=== PATIENT | female | born 1970 | race Caucasian/White ===

== ENCOUNTER → 2019-02-14 | Outpatient (CLI) | payer SELFPAY ==
[2019-02-14 10:27] VITALS: BP 107/73; PULSE 78; RESP 18; TEMP 98.1; BMI 31.8
--- NOTE | 2019-02-14 11:23 | P.HPOB ---
History of Present Illness H&P Date: 02/14/19 Chief Complaint: The patient is here for her routine gynecologic exam. This is a 56-year-old with an LMP of 01/08/2019. She is status post tubal ligation. It has been about 4 years since her last pelvic exam. She believes she is approaching the menopause and her menstrual periods have been about every 2 to 3 months during the past 3 years. Prior to that, her menstrual periods were regular every month. She has some hot flashes and night sweats during the past 3 years. Her LMP was more crampy than usual. She is otherwise without gynecologic complaints. She is currently on amoxicillin for a sinus infection. She was given a prescription for Diflucan since she tends to get yeast infections with antibiotics. She has taken to Diflucan pills over 3 days. She denies any vaginal itching, but has noticed some dryness. Review of Systems The patient's weight has been stable over the last year. She denies respiratory, cardiac, or G.I. problems. 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 She had a cryotherapy of the cervix in 1995 for dysplasia. She had a uterine fibroids measuring 5.5 cm in 2003. History of Any Multi-Drug Resistant Organisms: None Reported Past Surgical History: Breast Surgery, Tubal Ligation Additional Past Surgical History / Comment(s): laparoscopic cystectomy 1985; cryotherapy of the [id number]; Saline breast implants 2000. Past Anesthesia/Blood Transfusion Reactions: No Reported Reaction Past Psychological History: Anxiety, Depression Smoking Status: Current every day smoker Past Alcohol Use History: Rare Past Drug Use History: None Reported Additional History: She is and does have a boyfriend. 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 - Past Family History Mother Family Medical History: Cancer Additional Family Medical History / Comment(s): pacemaker of the heart; Bradycardia; had cervical cancer. Maternal grandfather had in [place]. Father Family Medical History: No Reported History, Unable to Obtain Medications and Allergies Home Medications Medication Instructions Recorded Confirmed Type Amoxicillin 500 mg PO TID 02/14/19 02/14/19 History Cyanocobalamin (Vitamin B-12) 1,000 mcg PO QAM 02/14/19 02/14/19 History [Vitamin B-12] Folic Acid 1 mg PO QAM 02/14/19 02/14/19 History Pyridoxine [Vitamin B-6] 50 mg PO QAM 02/14/19 02/14/19 History Allergies Allergy/AdvReac Type Severity Reaction Status Date / Time doxycycline Allergy Nausea & Unverified 02/14/19 10:14 Vomiting Sulfa (Sulfonamide Allergy Unknown Unverified 02/14/19 10:14 Antibiotics) sulfamethoxazole Allergy Nausea Unverified 02/14/19 10:14 [From Bactrim] trimethoprim [From Bactrim] Allergy Nausea Unverified 02/14/19 10:14 Exam Vital Signs Temp Pulse Resp BP Pulse Ox 02/14/19 10:17 98.1 F 78 18 107/73 99 Intake and Output 02/13/19 02/14/19 02/14/19 22:59 06:59 14:59 Other: Weight 78.925 kg Height 5'2", weight 174 pounds, BMI 31.8. This is a well-developed well-nourished white female who is alert and oriented times 3 in no acute distress. HEENT: Within normal limits. NECK: Supple without mass or thyromegaly. CHEST AND LUNGS: Clear to auscultation. HEART: Regular rate and rhythm. BREASTS: Are without mass or discharge. Consistent with bilateral breast implants. AXILLARY EXAM: Negative for adenopathy. BACK: Negative for CVA tenderness. ABDOMEN: Soft, nontender, without palpable masses. PELVIC EXAM: Normal external genitalia. Cervix and vagina appear normal. There is no unusual discharge. There is no evidence of prolapse. The uterus is midposition, multiparous, nongravid size and nontender. There are no palpable adnexal masses or tenderness. RECTAL EXAM: rectovaginal exam is negative for mass or tenderness and is negative for occult blood. EXTREMITIES: Nontender. IMPRESSION: 1. 48-year-old perimenopausal female with normal gynecologic exam. 2. History of uterine fibroid approximately 5.5 cm noted during her last . Uterus is currently normal in size on examination. 3. No evidence of yeast infection at this time. PLAN: 1. Pap smear was performed. 2. Self breast awareness was discussed with the patient. 3. Mammogram was recently done in 09/20 per the patient and was normal for the patient. I have recommended yearly mammograms. 4. Osteoporosis prevention was discussed. I have stressed the importance of adequate calcium, vitamin D and regular exercise. Recommended amounts of calcium and vitamin D were also discussed. 5. The patient is to keep a menstrual calendar and call if menstrual irregularities or problems. 6. She was advised to return in one year for her annual well woman exam.
== END | disposition home or self-care (01) ==
LOC: WWCWWP 09:37
PROVIDERS: ATTEND Obstetrics & Gynecology
DX: Z53.9 Procedure and treatment not carried out, unspecified reason (principal)

== ENCOUNTER → 2020-02-29 | Outpatient (CLI) | payer OTHER ==
--- NOTE | 2020-02-29 09:15 | XR ---
EXAMINATION TYPE: XR lumbar spine 1V, XR knee 4V bilateral, XR foot complete bilateral DATE OF EXAM: 02/29/2020 COMPARISON: NONE HISTORY: 49-year-old female chronic pain. [id number], [id number], [id number], M545, [id number], [id number] FINDINGS: LUMBAR SPINE: Only a single AP view is provided. 5 lumbar type vertebral bodies. On the frontal view, vertebral bod y height appears maintained. Bilateral tubal ligation clips. Umbilical ring is noted. KNEES: On the right, there may be mild joint space narrowing along the lateral aspect of the patellofemoral compartment. No sizable joint effusions. Extensor mechanisms are intact. Mild marginal spurring in th e patellofemoral compartments. 6 mm round density projecting at the medial left patella suggestive of a bone island. No acute fracture, subluxation, or dislocation seen. FEET: 4 mm corticated bone density lateral right first distal phalangeal base. Small plantar calcaneal spur s on both sides. A toe ring is present on the left second toe. No acute fracture, subluxation, disloc ation seen on either side. IMPRESSION: 1. Lumbar spine: Only a single AP view is submitted. No specific abnormality seen. 2. Knees: Very mild degenerative spurring in the patellofemoral compartment. There may be some asymme tric joint space narrowing within the lateral aspect of the right patellofemoral compartment. No acut e osseous abnormality seen. 3. Feet: Small plantar heel spurs on both sides. An old fragmented spur on the right at the lateral a spect of the first distal phalangeal base. No acute osseous abnormality seen.
== END | disposition home or self-care (01) ==
LOC: RADXRYALE 08:23
PROVIDERS: ATTEND Family Medicine
DX: M25.761 Osteophyte, right knee (principal); M77.32 Calcaneal spur, left foot; M77.31 Calcaneal spur, right foot; M54.5 Low back pain; G89.29 Other chronic pain
CPT/HCPCS: 72020

== ENCOUNTER → 2020-12-09 | Outpatient (CLI) | payer OTHER ==
--- NOTE | 2020-12-09 14:23 | XR ---
EXAMINATION TYPE: XR elbow complete RT, XR forearm RT DATE OF EXAM: 12/09/2020 CLINICAL HISTORY: Increasing pain and weakness. TECHNIQUE: Frontal, lateral and oblique images of the right elbow are obtained. 2 views right forear m. COMPARISON: None FINDINGS: There is no acute fracture/dislocation evident in the right elbow. No abnormal fat pad si gns are seen. The overlying soft tissue appears unremarkable. Images of the right forearm show no acute fracture or dislocation. Visualized portion of right wrist joint appears within normal limits. Overlying soft tissue is unremarkable. IMPRESSION: Unremarkable studies.
--- NOTE | 2020-12-09 15:27 | XR ---
EXAMINATION TYPE: XR shoulder complete RT DATE OF EXAM: 12/09/2020 Comparison: None Clinical History: 50-year-old female [id number], [id number], [id number] shoulder PAIN, RT ARM PAIN Findings: AC joint appears intact. Subacromial space is preserved. No tendinous or bursal calcifications. The g lenohumeral joint appears intact. No acute fracture or dislocation. Impression: No acute osseous abnormality seen.
== END | disposition home or self-care (01) ==
LOC: RADXRYALE 13:11
PROVIDERS: ATTEND Family Medicine
DX: M25.521 Pain in right elbow (principal); M25.511 Pain in right shoulder; M79.631 Pain in right forearm

== ENCOUNTER → 2021-04-01 | Outpatient (CLI) | payer OTHER ==
[2021-04-01 13:08] VITALS: BP 120/63; PULSE 86; RESP 18; TEMP 98.1
--- NOTE | 2021-04-01 15:54 | P.HPOB ---
History of Present Illness H&P Date: 04/01/21 Chief Complaint: The patient is here for her routine gynecologic exam. This is a 50-year-old with an LMP of 2019. The patient says she woke with left lower quadrant abdominal cramping about 2 weeks ago and this lasted for 2 or 3 minutes. She states it was not very severe and she did not fully awake from her sleep. A similar episode occurred just recently, but it was the right lower quadrant that felt crampy and this also occurred in the middle of the night when she was sleeping. Each of these episode lasted only 2 or 3 minutes. She was wondering if this was being caused by a urinary tract infection, so she took some amoxicillin antibiotics that her daughter had. She took these about a week ago. Yesterday she again had some low abdominal cramping. She she is not experiencing any abdominal or pelvic pain now. She states the amount of urine has been small when she does void, but otherwise denies any urinary symptoms such as dysuria or urgency. She still has occasional hot flashes which are not very severe. She denies any postmenopausal bleeding. The cramps, however, sometimes make her feel like she is about to start a menstrual period. Review of Systems The patient has gained about 16 pounds over the past year. She denies respiratory or cardiac problems. GI: Intermittent loose stools over the past couple of weeks. Past Medical History Past Medical History: Osteoarthritis (OA) Additional Past Medical History / Comment(s): Degenerative arthritis. Umbilical hernia. 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 She had a cryotherapy of the cervix in 1995 for dysplasia. She had a uterine fibroids measuring 5.5 cm in 2003. History of Any Multi-Drug Resistant Organisms: None Reported Past Surgical History: Breast Surgery, Tubal Ligation Additional Past Surgical History / Comment(s): laparoscopic cystectomy 1985; cryotherapy of the [id number]; Saline breast implants 2000. Past Anesthesia/Blood Transfusion Reactions: No Reported Reaction Past Psychological History: Anxiety, Depression Smoking Status: Former smoker Past Alcohol Use History: Rare Additional Past Alcohol Use History / Comment(s): Quit Smoking 2020. Past Drug Use History: None Reported Additional History: She is and has been with her fianc since approximately 1999. She is an [employer] and is currently not working at this time. - Past Family History Mother Family Medical History: Cancer Additional Family Medical History / Comment(s): pacemaker of the heart; Bradycardia; had cervical cancer. Maternal grandfather had in [place]. Father Family Medical History: No Reported History, Unable to Obtain Medications and Allergies Home Medications Medication Instructions Recorded Confirmed Type Cyanocobalamin (Vitamin B-12) 1,000 mcg PO QAM 02/14/19 04/01/21 History [Vitamin B-12] Folic Acid 1 mg PO QAM 02/14/19 04/01/21 History Pyridoxine [Vitamin B-6] 50 mg PO QAM 02/14/19 04/01/21 History Allergies Allergy/AdvReac Type Severity Reaction Status Date / Time doxycycline Allergy Nausea & Unverified 04/01/21 13:08 Vomiting Sulfa (Sulfonamide Allergy Unknown Unverified 04/01/21 13:08 Antibiotics) sulfamethoxazole Allergy Nausea Unverified 04/01/21 13:08 [From Bactrim] trimethoprim [From Bactrim] Allergy Nausea Unverified 04/01/21 13:08 Exam Vital Signs Temp Pulse Resp BP Pulse Ox 04/01/21 13:02 98.1 F 86 18 120/63 95 Intake and Output 04/01/21 04/01/21 04/01/21 06:59 14:59 22:59 Other: Weight 86.183 kg Height 5 feet 2 inches, weight 190 pounds, BMI 34.8. This is a well-developed well-nourished white female who is alert and oriented times 3 in no acute distress. HEENT: Within normal limits. NECK: Supple without mass or thyromegaly. CHEST AND LUNGS: Clear to auscultation. HEART: Regular rate and rhythm. BREASTS: Are without mass or discharge. AXILLARY EXAM: Negative for adenopathy. BACK: Negative for CVA tenderness. ABDOMEN: Soft, nontender, without palpable masses. PELVIC EXAM: Normal external genitalia with minimal atrophy. Cervix and vagina a ppear normal with minimal atrophy. There is no cervical motion tenderness. There is no unusual discharge. There is no evidence of prolapse. The uterus is midposition and is nongravid size. There is minimal uterine tenderness with palpation. There are no palpable adnexal masses or tenderness. RECTAL EXAM: Rectovaginal exam is negative for mass or tenderness and is negative for occult blood. EXTREMITIES: Nontender. IMPRESSION: 1. 50-year-old menopausal female with a 2 week history of intermittent low abdominal cramping with slight mid pelvic tenderness on exam today. Differential diagnosis will include a urinary tract infection, GI cramping, ovarian cyst, and uterine cramping. Based on her HPI, it seems a GI cause is more likely than gynecologic especially with loose stools. At this time, I doubt uterine fibroids would be the main cause for her cramping. 2. History of uterine fibroid in the past. During her 1999 for , she had a 5.5 cm a uterine fibroid. The uterus does not feel enlarged today. PLAN: 1. Pap smear cotest was performed. 2. Self breast awareness was discussed with the patient. We have also discussed symptoms associated with inflammatory breast cancer. 3. Mammogram is due and the order slip was given to the patient for this. 4. I recommended pelvic ultrasound and the order slip was given to the patient for this. If there is no gynecologic cause identified, she will follow up with her PCP if she continues to have abdominal pains. 5. Urine has been obtained for urinalysis and culture with sensitivities. 6. She has completed her Covid vaccination series. 7. We have discussed her weight gain and weight control. I have stressed the importance of good nutrition, adequate fiber, regular meals, and increased activity. I have also recommended that she look into Weight Watchers since she has been experiencing the weight gain without significant improvement during the past year. 8. She was advised to return in one year for her annual well woman exam.
[2021-04-01 16:23] LABS: Appearance,Urine Clear (Clear); Bilirubin,Urine Negative (Negative); Blood,Urine Negative (Negative); Color,Urine Yellow; Glucose,Urine (UA) Negative (Negative); Ketones,Urine Negative (Negative); Leukocyte Esterase,Urine Negative (Negative); Nitrite,Urine Negative (Negative); Protein,Urine Negative (Negative); Specific Gravity,Urine 1.021 (1.001-1.035); Urobilinogen,Urine <2.0 mg/dL (<2.0)
--- NOTE | 2021-04-02 10:18 | P.PN ---
Progress Note - Text Progress Note Date: 04/02/21 OUTPATIENT FOLLOW-UP NOTE TEST(S)/RESULTS: Urinalysis from 03/24/2021 was negative. METHOD OF NOTIFICATION: She was notified by phone. PATIENT COMMENTS: DIAGNOSIS: Negative urinalysis DISCUSSION: I have mentioned that I do not feel that her cramps are related to a urinary tract infection. I still recommend a pelvic ultrasound which she scheduled for later in April. PLAN: Await urine culture. As above.
[2021-04-03 01:47] LABS: Hepatitis B Surface Antibody Reactive (Nonreactive)
== END ==
LOC: WWCWWP 12:28
PROVIDERS: ATTEND Obstetrics & Gynecology
DX: Z01.419 Encounter for gynecological examination (general) (routine) without abnormal findings (principal); R10.32 Left lower quadrant pain; M19.90 Unspecified osteoarthritis, unspecified site; F41.9 Anxiety disorder, unspecified; F32.9 Major depressive disorder, single episode, unspecified; Z87.891 Personal history of nicotine dependence; Z88.1 Allergy status to other antibiotic agents; Z88.2 Allergy status to sulfonamides; Z87.42 Personal history of other diseases of the female genital tract
CPT/HCPCS: 81003; 86706; 87086

== ENCOUNTER → 2021-04-15 | Outpatient (CLI) | payer OTHER ==
--- NOTE | 2021-04-17 14:02 | MM ---
Reason for exam: screening (asymptomatic). Last mammogram was performed 5 years ago. History: Patient is postmenopausal. Saline implants in both breasts, 2000. Physical Findings: A clinical breast exam by your physician is recommended on an annual basis and results should be correlated with mammographic findings. MG Screening Mammo Implant/CAD Bilateral CC, MLO, and ID view(s) were taken. Prior study comparison: April 29, 2016, bilateral [facility] screening mammo. There are scattered fibroglandular densities. Bilateral breast prothesis. No significant changes when compared with prior studies. ASSESSMENT: Benign, BI-RAD 2 RECOMMENDATION: Routine screening mammogram of both breasts in 1 year.
== END | disposition home or self-care (01) ==
LOC: RADMAMWWP 14:32
PROVIDERS: ATTEND Obstetrics & Gynecology
DX: Z12.31 Encounter for screening mammogram for malignant neoplasm of breast (principal); Z78.0 Asymptomatic menopausal state
CPT/HCPCS: 77067

== ENCOUNTER → 2021-05-02 | Outpatient (CLI) | payer OTHER ==
--- NOTE | 2021-05-02 15:30 | US ---
EXAMINATION TYPE: US pelvic complete DATE OF EXAM: 05/02/2021 COMPARISON: NONE CLINICAL HISTORY: R10.31, R10.32 SUSAN ABDOMINAL PAIN. TECHNIQUE: Transabdominal (TA). Technologist recommended transvaginal Date of LMP: 2 years prior EXAM MEASUREMENTS: Uterus: 8.8 x 3.5 x 4.1 cm Endometrial Stripe: 0.4 cm Right Ovary: not visualized Left Ovary: not visualized 1. Uterus: Anteverted, echogenic area right uterus measuring 0.8 x 0.7 x 0.9cm 2. Endometrium: wnl 3. Right Ovary: not visualized 4. Left Ovary: not visualized 5. Bilateral Adnexa: wnl 6. Posterior cul-de-sac: there is a hypoechoic area in cul de sac that may represent an ovary or free fluid IMPRESSION: 1. Small fibroid suspected within the posterior body of the uterus.
== END | disposition home or self-care (01) ==
LOC: RADUSWWP 14:30
PROVIDERS: ATTEND Obstetrics & Gynecology
DX: R10.31 Right lower quadrant pain (principal); R10.32 Left lower quadrant pain
CPT/HCPCS: 76856

== ENCOUNTER 2021-11-24 08:27 | Day surgery (SDC) | payer OTHER ==
[2021-11-20 15:09] VITALS: BMI 34.5
--- NOTE | 2021-11-24 07:05 | P.GSHP ---
History of Present Illness H&P Date: 11/24/21 CHIEF COMPLAINT: Colon screen HISTORY OF PRESENT ILLNESS: The patient is a 51-year-old female who presents for colon screen. Lower endoscopy was offered for further evaluation and management. PAST MEDICAL HISTORY: Please see list. PAST SURGICAL HISTORY: Please see list. MEDICATIONS: Please see list. ALLERGIES: Please see list. SOCIAL HISTORY: No illicit drug use FAMILY HISTORY: No reports of Crohn disease or ulcerative colitis. REVIEW OF ORGAN SYSTEMS: CONSTITUTIONAL: No reports of fevers or chills. PHYSICAL EXAM: VITAL SIGNS: Stable GENERAL: Well-developed pleasant in no acute distress. HEENT: No scleral icterus. Extraocular movements grossly intact. Moist buccal mucosa. NECK: Supple without lymphadenopathy. CHEST: Unlabored respirations. Equal bilateral excursions. CARDIOVASCULAR: Regular rate and rhythm. Distal 2+ pulses. ABDOMEN: Soft, nontender, nondistended. MUSCULOSKELETAL: No clubbing, cyanosis, or edema. ASSESSMENT: 1. Colon screen. PLAN: 1. Recommend proceeding with a lower endoscopy Past Medical History Past Medical History: Hyperlipidemia, Osteoarthritis (OA) Additional Past Medical History / Comment(s): Degenerative arthritis. Umbilical hernia. recently has had rectal bleeding History of Any Multi-Drug Resistant Organisms: None Reported Past Surgical History: Breast Surgery, Tubal Ligation Additional Past Surgical History / Comment(s): laparoscopic cystectomy 1985; cryotherapy of the [id number]; Saline breast implants 2000. Past Anesthesia/Blood Transfusion Reactions: No Reported Reaction Smoking Status: Former smoker, Vaper - Past Family History Mother Family Medical History: Cancer Additional Family Medical History / Comment(s): pacemaker of the heart; Bradycardia; had cervical cancer. Maternal grandfather had in [place]. Father Family Medical History: No Reported History, Unable to Obtain Medications and Allergies Home Medications Medication Instructions Recorded Confirmed Type Cyanocobalamin (Vitamin B-12) 1,000 mcg PO QAM 02/14/19 11/20/21 History [Vitamin B-12] Folic Acid 1 mg PO QAM 02/14/19 11/20/21 History Pyridoxine [Vitamin B-6] 50 mg PO QAM 02/14/19 11/20/21 History Cyclobenzaprine [Flexeril] 10 mg PO TID PRN 11/20/21 11/20/21 History Rosuvastatin [Crestor] 20 mg PO DAILY 11/20/21 11/20/21 History Allergies Allergy/AdvReac Type Severity Reaction Status Date / Time doxycycline Allergy Nausea & Unverified 11/20/21 14:42 Vomiting Sulfa (Sulfonamide Allergy Unknown Unverified 11/20/21 14:42 Antibiotics) sulfamethoxazole Allergy Nausea Unverified 11/20/21 14:42 [From Bactrim] trimethoprim [From Bactrim] Allergy Nausea Unverified 11/20/21 14:42 cephalexin [From Keflex] AdvReac Nausea Verified 11/20/21 14:43
[~2021-11-24 08:27] MED LIST: LACTATED RINGERS 1,000 ML IV SCH; LIDOCAINE 1% (10MG/ML) FOR IV START INTRADERMA PRN
[2021-11-24 08:57] VITALS: RESP 20; TEMP 98.8
[2021-11-24] MEDS ORDERED: PROPOFOL 10 MG/ML 20 ML VIAL IV ONE (09:52)
--- NOTE | 2021-11-24 10:20 | P.PCN ---
Date of Procedure: 11/24/21 Description of Procedure: PREOPERATIVE DIAGNOSIS: Rectal bleeding POSTOPERATIVE DIAGNOSIS: Tubular adenoma sigmoid colon Tubular adenoma ascending colon Sigmoid diverticulosis OPERATION: Colonoscopy to the ileocecal valve and appendiceal orifice, cecum Colonoscopy with hot snare polypectomy Colonoscopy with cold forceps biopsy SURGEON: Carla Wick MD. ANESTHESIA: MAC. INDICATIONS: The patient is an 51-year-old female who presents for first colonoscopy. She denies prior colonoscopies. She denies family history of colon cancer. Knowledge of Benefits and risks were described and informed consent was obtained. DESCRIPTION OF PROCEDURE: The patient had undergone Sutab prep. The patient had been brought into the operating room and laid in the left lateral decubitus position. After adequate intravenous sedation, the rectum was examined with 2% lidocaine jelly. No external hemorrhoids were encountered. The rectal tone was within normal limits. No lesions were palpated in the rectal vault. An Olympus colonoscope was advanced until the cecum, ileocecal valve and appendiceal orifice were clearly viewed. The prep was good. Sigmoid diverticulosis was encountered. Colonic polyps were found and removed. No evidence of focal colitis was found. Retroflexion of the scope demonstrated grade 1 internal hemorrhoids without active bleeding or inflammation. The colon was desufflated. The patient had tolerated the procedure well. Withdrawal time was over 6 minutes. FINDINGS: Aronchick preparation quality scale 2 (1-5) Internal hemorrhoids, grade 1 No external hemorrhoids No arteriovenous malformations. Sigmoid diverticulosis Removal of 2 polyps: - Snare polypectomy 25 cm from the anal verge, 12 mm tubular adenoma polyp - Cold forceps biopsy at ascending colon, 5 mm tubulovillous polyp, removed in piecemeal No focal colitis. RECOMMENDATIONS: Repeat colonoscopy in one year due to piecemeal resection of polyp Plan - Discharge Summary Discharge Rx Participant: No New Discharge Prescriptions: Continue Pyridoxine [Vitamin B-6] 50 mg PO QAM Folic Acid 1 mg PO QAM Cyanocobalamin (Vitamin B-12) [Vitamin B-12] 1,000 mcg PO QAM Cyclobenzaprine [Flexeril] 10 mg PO TID PRN PRN Reason: Muscle Spasm Rosuvastatin [Crestor] 20 mg PO DAILY Discharge Medication List Cyanocobalamin (Vitamin B-12) [Vitamin B-12] 1,000 mcg PO QAM 02/14/19 [History] Folic Acid 1 mg PO QAM 02/14/19 [History] Pyridoxine [Vitamin B-6] 50 mg PO QAM 02/14/19 [History] Cyclobenzaprine [Flexeril] 10 mg PO TID PRN 11/20/21 [History] Rosuvastatin [Crestor] 20 mg PO DAILY 11/20/21 [History] Follow up Appointment(s)/Referral(s): Carla Wick MD [STAFF PHYSICIAN] - 12/09/21 Patient Instructions/Handouts: Colorectal Polyps (GEN), Diverticulosis Diet (GEN), Diverticulosis (DC) Activity/Diet/Wound Care/Special Instructions: Repeat colonoscopy one year, 2022 Discharge Disposition: HOME SELF-CARE
[2021-11-24 10:22] VITALS: PULSE 78
[2021-11-24 10:37] VITALS: BP 103/71
== END 2021-11-24 11:32 | disposition home or self-care (01) ==
LOC: ORWHC2ENDO 08:27
PROVIDERS: ATTEND Surgery Plastic and Reconstructive Surgery
DX: D12.2 Benign neoplasm of ascending colon (principal); D12.5 Benign neoplasm of sigmoid colon; K57.31 Diverticulosis of large intestine without perforation or abscess with bleeding; K64.0 First degree hemorrhoids; E78.5 Hyperlipidemia, unspecified; M19.90 Unspecified osteoarthritis, unspecified site; K42.9 Umbilical hernia without obstruction or gangrene; Z98.51 Tubal ligation status; F41.9 Anxiety disorder, unspecified; F32.A Depression, unspecified; Z98.890 Other specified postprocedural states; Z87.891 Personal history of nicotine dependence; Z82.49 Family history of ischemic heart disease and other diseases of the circulatory system; Z79.899 Other long term (current) drug therapy; Z88.1 Allergy status to other antibiotic agents; Z88.2 Allergy status to sulfonamides
CPT/HCPCS: 88305; 45380; 45385; J2704

== ENCOUNTER → 2022-09-22 | Outpatient (CLI) | payer OTHER ==
[2022-09-22 11:23] VITALS: BP 136/88; PULSE 95; RESP 18; TEMP 97.9
--- NOTE | 2022-09-22 12:17 | P.HPOB ---
History of Present Illness H&P Date: 09/22/22 Chief Complaint: The patient is here for her routine gynecologic exam. This is a 52-year-old with an LMP of 2019. She is without gynecologic complaints and denies any postmenopausal bleeding. She was experiencing some abdominal cramping at her last well woman examination in March 2021. She states that she had a colonoscopy done in 2021 and 2 large polyps were removed which were benign. She states she is no longer experiencing any abdominal symptoms. Review of Systems The patient has lost 19 pounds over the last year. She has lost the weight with a weight loss program which stresses the importance of exercise, diet and increa sed water intake. She denies respiratory, cardiac, or G.I. problems. Past Medical History Past Medical History: Hyperlipidemia, Osteoarthritis (OA) Additional Past Medical History / Comment(s): Degenerative arthritis. Umbilical hernia. 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 Cryotherapy of the cervix in 1995. Small uterine fibroid. History of Any Multi-Drug Resistant Organisms: None Reported Past Surgical History: Breast Surgery, Tubal Ligation Additional Past Surgical History / Comment(s): laparoscopic cystectomy 1985; cryotherapy of the [id number]; Saline breast implants 2000. COLONOSCOPY NOVEMBER 2021 Past Anesthesia/Blood Transfusion Reactions: No Reported Reaction Past Psychological History: Anxiety, Depression Additional Psychological History / Comment(s): claustrophobic w/mask on Smoking Status: Former smoker, Vaper Past Alcohol Use History: Rare Additional Past Alcohol Use History / Comment(s): Quit Smoking 2020. still vapes occasionally Past Drug Use History: None Reported Additional History: She is and has been with her boyfriend since 1999. 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 - Past Family History Mother Family Medical History: Cancer Additional Family Medical History / Comment(s): pacemaker of the heart; Bradycardia; had cervical cancer. Maternal grandfather had in [place]. Father Family Medical History: Unable to Obtain Medications and Allergies Home Medications Medication Instructions Recorded Confirmed Type Cyclobenzaprine [Flexeril] 10 mg PO TID PRN 11/20/21 09/22/22 History Ibuprofen 600 mg PO DIRECTED PRN 09/22/22 09/22/22 History Allergies Allergy/AdvReac Type Severity Reaction Status Date / Time doxycycline Allergy Nausea & Unverified 09/22/22 11:17 Vomiting Sulfa (Sulfonamide Allergy Unknown Unverified 09/22/22 11:17 Antibiotics) sulfamethoxazole Allergy Nausea Unverified 09/22/22 11:17 [From Bactrim] trimethoprim [From Bactrim] Allergy Nausea Unverified 09/22/22 11:17 cephalexin [From Keflex] AdvReac Nausea Verified 09/22/22 11:17 Exam Vital Signs Temp Pulse Resp BP Pulse Ox 09/22/22 11:21 97.9 F 95 18 136/88 96 Intake and Output 09/21/22 09/22/22 09/22/22 22:59 06:59 14:59 Other: Weight 77.564 kg Height 5 feet 2 inches, weight 171 pounds, BMI 31.3. This is a well-developed well-nourished white female who is alert and oriented times 3 in no acute distress. HEENT: Within normal limits. NECK: Supple without mass or thyromegaly. CHEST AND LUNGS: Clear to auscultation. HEART: Regular rate and rhythm. BREASTS: Are without mass or discharge. Breasts are consistent with bilateral implants. AXILLARY EXAM: Negative for adenopathy. BACK: Negative for CVA tenderness. ABDOMEN: Soft, nontender, without palpable masses. PELVIC EXAM: Normal external genitalia with mild atrophy. Cervix and vagina appear normal with mild atrophy. There is no unusual discharge. There is no evidence of prolapse. The uterus is midposition, nongravid size and nontender. There are no palpable adnexal masses or tenderness. RECTAL EXAM: Rectovaginal exam is negative for mass or tenderness and is negative for occult blood. EXTREMITIES: Nontender. IMPRESSION: 1. 52-year-old menopausal female with normal gynecologic exam. 2. History of small uterine fibroids. The largest measured approximately 1 cm on her 2020 pelvic ultrasound. PLAN: 1. Pap smear was deferred since she had a negative Pap smear cotest on 03/24/2021. 2. Self breast awareness was discussed with the patient. We have also discussed symptoms associated with inflammatory breast cancer. 3. Screening mammogram is due and the order slip was given to the patient for this. She states she may have this done at [facility]. 4. Osteoporosis prevention was discussed. I have stressed the importance of adequate calcium, vitamin D and regular exercise. Recommended amounts of calcium and vitamin D were also discussed. 5. Weight control and weight loss was discussed. I stressed importance of good nutrition, regular exercise and adequate fiber. 6. She was advised to return in one year for her annual well woman exam.
== END ==
LOC: WWCWWP 11:05
PROVIDERS: ATTEND Obstetrics & Gynecology
DX: Z01.419 Encounter for gynecological examination (general) (routine) without abnormal findings (principal); E78.5 Hyperlipidemia, unspecified; M19.90 Unspecified osteoarthritis, unspecified site; D25.9 Leiomyoma of uterus, unspecified; Z88.1 Allergy status to other antibiotic agents; Z88.2 Allergy status to sulfonamides; F17.210 Nicotine dependence, cigarettes, uncomplicated

== ENCOUNTER 2022-11-25 09:55 | Day surgery (SDC) | payer OTHER ==
--- NOTE | 2022-11-25 08:55 | P.GSHP ---
History of Present Illness H&P Date: 11/25/22 CHIEF COMPLAINT: Colon screen HISTORY OF PRESENT ILLNESS: The patient is a 52-year-old female who presents for colon screen. Lower endoscopy was offered for further evaluation and management. PAST MEDICAL HISTORY: Please see list. PAST SURGICAL HISTORY: Please see list. MEDICATIONS: Please see list. ALLERGIES: Please see list. SOCIAL HISTORY: No illicit drug use FAMILY HISTORY: No reports of Crohn disease or ulcerative colitis. REVIEW OF ORGAN SYSTEMS: CONSTITUTIONAL: No reports of fevers or chills. PHYSICAL EXAM: VITAL SIGNS: Stable GENERAL: Well-developed pleasant in no acute distress. HEENT: No scleral icterus. Extraocular movements grossly intact. Moist buccal mucosa. NECK: Supple without lymphadenopathy. CHEST: Unlabored respirations. Equal bilateral excursions. CARDIOVASCULAR: Regular rate and rhythm. Distal 2+ pulses. ABDOMEN: Soft, nontender, nondistended. MUSCULOSKELETAL: No clubbing, cyanosis, or edema. ASSESSMENT: 1. Colon screen. PLAN: 1. Recommend proceeding with a lower endoscopy Past Medical History Past Medical History: Hyperlipidemia, Osteoarthritis (OA) Additional Past Medical History / Comment(s): Degenerative arthritis knees. Umbilical hernia. 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 Cryotherapy of the cervix in 1995. Small uterine fibroid. non cancerous adenoma last colonoscopy, trying to control cholesterol with diet. History of Any Multi-Drug Resistant Organisms: None Reported Past Surgical History: Breast Surgery, Tubal Ligation Additional Past Surgical History / Comment(s): laparoscopic cystectomy 1985; cryotherapy of the [id number]; Saline breast implants 2000. COLONOSCOPY NOVEMBER 2021 Past Anesthesia/Blood Transfusion Reactions: No Reported Reaction Smoking Status: Former smoker, Vaper - Past Family History Mother Family Medical History: Cancer Additional Family Medical History / Comment(s): pacemaker of the heart; Bradycardia; had cervical cancer. Maternal grandfather had in [place]. Father Family Medical History: Unable to Obtain Medications and Allergies Home Medications Medication Instructions Recorded Confirmed Type Cyclobenzaprine [Flexeril] 10 mg PO TID PRN 11/20/21 11/23/22 History Ibuprofen 600 mg PO DIRECTED PRN 09/22/22 11/23/22 History Unk Black Tummeric 1 tab PO DIRECTED 11/23/22 11/23/22 History Unk Burn 2.0 Supplement 1 tab PO DIRECTED 11/23/22 11/23/22 History Unk Burn Pm Supplement 1 tab PO DIRECTED 11/23/22 11/23/22 History Allergies Allergy/AdvReac Type Severity Reaction Status Date / Time doxycycline Allergy Nausea & Unverified 09/22/22 11:17 Vomiting Sulfa (Sulfonamide Allergy Nausea Unverified 11/23/22 12:04 Antibiotics) sulfamethoxazole Allergy Nausea Unverified 09/22/22 11:17 [From Bactrim] trimethoprim [From Bactrim] Allergy Nausea Unverified 09/22/22 11:17 cephalexin [From Keflex] AdvReac Nausea Verified 09/22/22 11:17
[~2022-11-25 09:55] MED LIST changes: -LIDOCAINE 1% (10MG/ML) FOR IV START INTRADERMA PRN
[2022-11-25] MEDS ORDERED: LIDOCAINE 1% (10MG/ML) FOR IV START INTRADERMA ONE (10:25)
[2022-11-25 10:33] VITALS: TEMP 98.7
[2022-11-25] MEDS ORDERED: PROPOFOL 10 MG/ML 20 ML VIAL IV ONE (10:37)
--- NOTE | 2022-11-25 11:03 | P.PCN ---
Date of Procedure: 11/25/22 Description of Procedure: PREOPERATIVE DIAGNOSIS: Personal history colon polyps Colonoscopy screening. POSTOPERATIVE DIAGNOSIS: Colonoscopy screening. Diverticulosis, sigmoid OPERATION: Colonoscopy to the cecum, ileocecal valve and appendiceal orifice. SURGEON: Carla Wick MD. ANESTHESIA: MAC. INDICATIONS: The patient is a 52-year-old female who presents for colonoscopy screening. She has history of colon polyps. Last colonoscopy 5 years. Benefits and risks were described and informed consent was obtained. DESCRIPTION OF PROCEDURE: The patient had undergone Sutab prep. The patient had been brought into the operating room and laid in the left lateral decubitus position. After adequate intravenous sedation, the rectum was examined with 2% lidocaine jelly. No external hemorrhoids were encountered. The rectal tone was within normal limits. No lesions were palpated in the rectal vault. An Olympus colonoscope was advanced until the cecum, ileocecal valve and appendiceal orifice were clearly viewed. The prep was excellent. Scattered diverticulosis was encountered. No large colonic polyps were found. No evidence of focal colitis was found. Retroflexion of the scope demonstrated grade 1 internal hemorrhoids without active bleeding or inflammation. The colon was desufflated. The patient had tolerated the procedure well. Withdrawal time was over 6 minutes. FINDINGS: Aronchick preparation quality scale 1 (1-5) Internal hemorrhoids, grade 1 No external prolapsed hemorrhoids. No arteriovenous malformations. No adenomatous polyps. No focal colitis. RECOMMENDATIONS: Lower endoscopy in 5 years, 2027 Plan - Discharge Summary Discharge Rx Participant: No New Discharge Prescriptions: Continue Cyclobenzaprine [Flexeril] 10 mg PO TID PRN PRN Reason: Muscle Spasm Ibuprofen 600 mg PO DIRECTED PRN PRN Reason: Pain Unk Burn 2.0 Supplement 1 tab PO DIRECTED Unk Black Tummeric 1 tab PO DIRECTED Unk Burn Pm Supplement 1 tab PO DIRECTED Discharge Medication List Cyclobenzaprine [Flexeril] 10 mg PO TID PRN 11/20/21 [History] Ibuprofen 600 mg PO DIRECTED PRN 09/22/22 [History] Unk Black Tummeric 1 tab PO DIRECTED 11/23/22 [History] Unk Burn 2.0 Supplement 1 tab PO DIRECTED 11/23/22 [History] Unk Burn Pm Supplement 1 tab PO DIRECTED 11/23/22 [History] Follow up Appointment(s)/Referral(s): Carla Wick MD [STAFF PHYSICIAN] - As Needed Patient Instructions/Handouts: Diverticulosis Diet (GEN), Diverticulosis (ED) Activity/Diet/Wound Care/Special Instructions: Repeat colonoscopy 5 years, 2027 Discharge Disposition: HOME SELF-CARE
[2022-11-25 11:19] VITALS: BP 108/71; PULSE 78; RESP 16
== END 2022-11-25 12:06 | disposition home or self-care (01) ==
LOC: ORWHC2ENDO 09:55
PROVIDERS: ATTEND Surgery Plastic and Reconstructive Surgery
DX: Z12.11 Encounter for screening for malignant neoplasm of colon (principal); K57.30 Diverticulosis of large intestine without perforation or abscess without bleeding; K64.0 First degree hemorrhoids; E78.5 Hyperlipidemia, unspecified; M19.90 Unspecified osteoarthritis, unspecified site; M17.0 Bilateral primary osteoarthritis of knee; Z79.899 Other long term (current) drug therapy; Z98.51 Tubal ligation status; Z98.890 Other specified postprocedural states; Z87.891 Personal history of nicotine dependence; Z82.49 Family history of ischemic heart disease and other diseases of the circulatory system; Z88.1 Allergy status to other antibiotic agents; Z88.2 Allergy status to sulfonamides
CPT/HCPCS: 45378; J2704

== ENCOUNTER → 2023-12-03 | Outpatient (CLI) | payer OTHER ==
--- NOTE | 2023-12-03 17:09 | MM ---
Reason for Exam: Screening (asymptomatic). Last mammogram was performed 2 year(s) and 7 month(s) ago. Patient History: Menarche at age 11. First Full-Term at age 17. Postmenopausal. 2000, Bilateral Implants. Risk Values: Serena 5 year model risk: 0.8%. NCI Lifetime model risk: 6.0%. Prior Study Comparison: 07/11/2014 Screening Mammogram, [facility]. 04/29/2016 Bilateral Screening Mammogram, [facility]. 04/15/2021 Bilateral Screening Mammogram, [facility]. Tissue Density: There are scattered areas of fibroglandular density. Findings: Analyzed By CAD. The pattern is symmetrical. Bilateral breast prostheses are present. Benign calcifications within the left breast. Within the right breast there is an oval density with partially obscured margins measuring 0.4 cm 5 cm from the nipple. This is a new finding. Additional workup is recommended No suspicious groups of microcalcifications, spiculated or lobular masses, architectural distortion or other secondary signs of malignancy are mammographically apparent. Overall Assessment: Incomplete: need additional imaging evaluation, BI-RAD 0 Management: Diagnostic Breast Ultrasound of the right breast. A negative mammogram report should not preclude additional follow up of suspicious palpable abnormalities. Patient should continue monthly self breast exam. A clinical breast exam by your physician is recommended on an annual basis and results should be correlated with mammographic findings. Note on Serena scores and lifetime risk: 1. A Serena score greater than 3% is considered moderate risk. If this is the case, consider specialist referral to assess eligibility for a risk reducing agent. 2. If overall lifetime risk for the development of breast cancer is 20% or higher, the patient may qualify for future screening with alternating mammogram and breast MRI. Electronically signed and approved by: Tk Cifuentes D.O. Radiologis
== END | disposition home or self-care (01) ==
LOC: RADMAMWWP 10:16
PROVIDERS: ATTEND Family Medicine
DX: Z12.31 Encounter for screening mammogram for malignant neoplasm of breast (principal); N64.4 Mastodynia; T85.43XA Leakage of breast prosthesis and implant, initial encounter; Z78.0 Asymptomatic menopausal state; Z98.82 Breast implant status
CPT/HCPCS: 77067

== ENCOUNTER → 2023-12-09 | Outpatient (CLI) | payer OTHER ==
--- NOTE | 2023-12-09 15:18 | USB ---
Reason for Exam: Additional evaluation requested from abnormal screening. Patient History: Menarche at age 11. First Full-Term at age 17. Postmenopausal. 2000, Bilateral Implants. Risk Values: Serena 5 year model risk: 0.8%. NCI Lifetime model risk: 6.0%. Technique: Method: Targeted. Prior Study Comparison: 04/29/2016 Bilateral Screening Mammogram, [facility]. 04/15/2021 Bilateral Screening Mammogram, [facility]. 12/03/2023 Bilateral MG screening mammo implant/CAD, [facility]. Findings: The upper outer quadrant of the right breast, the axilla of the right breast and the retroareolar of the right breast were scanned. Targeted ultrasound upper quadrant right breast including scanning of the subareolar region and axilla. There is an underlying breast implant. At the 10:00 position, 5 cm from the nipple, there is a small 6 x 4 x 3 mm benign cyst. Possible mammographic correlate. Six-month follow-up mammogram recommended. Overall Assessment: Probably benign, BI-RAD 3 Management: Diagnostic Mammogram of the right breast in 6 months. A clinical breast exam by your physician is recommended on an annual basis and results should be correlated with mammographic findings. This exam should not preclude additional follow-up of suspicious palpable abnormalities. Results were given to the patient verbally at the time of exam. Electronically signed and approved by: Maxine Salas M.D. Radiologist
== END | disposition home or self-care (01) ==
LOC: RADUSWWP 13:49
PROVIDERS: ATTEND Family Medicine
DX: R92.8 Other abnormal and inconclusive findings on diagnostic imaging of breast (principal); N64.4 Mastodynia; Z78.0 Asymptomatic menopausal state

== ENCOUNTER → 2024-06-09 | Outpatient (CLI) | payer OTHER ==
--- NOTE | 2024-06-09 10:49 | MM ---
Reason for Exam: Follow-up at short interval from prior study. Last screening mammogram was performed 7 month(s) ago. Patient History: Menarche at age 11. First Full-Term at age 17. Postmenopausal. 2000, Bilateral Implants. Risk Values: Serena 5 year model risk: 0.9%. NCI Lifetime model risk: 5.9%. Prior Study Comparison: 04/29/2016 Bilateral Screening Mammogram, [facility]. 04/15/2021 Bilateral Screening Mammogram, [facility]. 12/03/2023 Bilateral MG screening mammo implant/CAD, [facility]. Tissue Density: Right: There are scattered areas of fibroglandular density. Findings: Analyzed By CAD. Redemonstrated subpectoral saline implant. The small area of isodense nodularity upper outer quadrant right breast middle depth remains unchanged for 6 months. No other significant change is seen. Overall Assessment: Probably benign, BI-RAD 3 Management: Diagnostic Mammogram of both breasts in 6 months. Total one-year follow-up right breast. Annual exam of the left breast. Results were given to the patient verbally at the time of exam. Patient should continue monthly self-breast exams. A clinical breast exam by your physician is recommended on an annual basis. This exam should not preclude additional follow-up of suspicious palpable abnormalities. Note on Serena scores and lifetime risk: 1. A Serena score greater than 3% is considered moderate risk. If this is the case, consider specialist referral to assess eligibility for a risk reducing agent. 2. If overall lifetime risk for the development of breast cancer is 20% or higher, the patient may qualify for future screening with alternating mammogram and breast MRI. [facility], , 06/09/2024 10:45 AM. Electronically signed and approved by: Maxine Salas M.D. Radiologist
== END | disposition home or self-care (01) ==
LOC: RADMAMWWP 10:11
PROVIDERS: ATTEND Family Medicine
DX: R92.323 Mammographic fibroglandular density, bilateral breasts (principal); N60.01 Solitary cyst of right breast; Z78.0 Asymptomatic menopausal state
CPT/HCPCS: 77065; G0279; 77061

== ENCOUNTER → 2024-10-31 | Outpatient (CLI) | payer OTHER ==
[2024-10-31 09:40] VITALS: BP 110/77; PULSE 88; RESP 16; TEMP 98.8
--- NOTE | 2024-10-31 12:23 | P.HPOB ---
History of Present Illness H&P Date: 10/31/24 Chief Complaint: Patient is here for her routine gynecologic exam. This is a 54-year-old G2, P2 with an LMP of 2019. The patient states she is concerned about her longtime boyfriend not being faithful. There have been behavioral changes and she states he has been doing strange things that she cannot explain. Sexual activity has been different and this has led her to some of her suspicions. She states sexual intercourse 3 days ago was very uncomfortable and there was vaginal dryness. She also noticed a small amount of spotting and vulvar burning after intercourse ago. The spotting had not happened before that. It has not happened since then. She is requesting STD testing. She denies vaginal discharge but has noticed a slight vaginal odor. Review of Systems The patient has lost 12 pounds over the last year. She attributes this to being under a lot of stress. She denies respiratory, cardiac, or G.I. problems. Past Medical History Past Medical History: Hyperlipidemia, Osteoarthritis (OA) Additional Past Medical History / Comment(s): Degenerative arthritis knees. Umbilical hernia. Non cancerous adenoma last colonoscopy, trying to control cholesterol with diet. 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 Cryotherapy of the cervix in 1995. Small uterine fibroid. History of Any Multi-Drug Resistant Organisms: None Reported Past Surgical History: Breast Surgery, Tubal Ligation Additional Past Surgical History / Comment(s): laparoscopic cystectomy 1985; cryotherapy of the [id number]; Saline breast implants 2000. COLONOSCOPY NOVEMBER 2021 Past Anesthesia/Blood Transfusion Reactions: No Reported Reaction Past Psychological History: Anxiety Additional Psychological History / Comment(s): claustrophobic w/mask on Smoking Status: Former smoker, Vaper (Vapes daily.) Past Alcohol Use History: None Reported Additional Past Alcohol Use History / Comment(s): Quit Smoking 2020. still vapes cartridge last 2 weeks Past Drug Use History: None Reported Additional History: She is and has been with her boyfriend since 1999. She is currently working at [employer] part-time. - Past Family History Mother Family Medical History: Cancer Additional Family Medical History / Comment(s): pacemaker of the heart; Bradycardia; had cervical cancer. Maternal grandfather had in [place]. Father Family Medical History: Unable to Obtain Medications and Allergies Home Medications Medication Instructions Recorded Confirmed Type Cyclobenzaprine [Flexeril] 10 mg PO TID PRN 11/20/21 10/31/24 History Ibuprofen 600 mg PO DIRECTED PRN 09/22/22 10/31/24 History Unk Burn 2.0 Supplement 1 tab PO DIRECTED 11/23/22 10/31/24 History Unk Burn Pm Supplement 1 tab PO DIRECTED 11/23/22 10/31/24 History Allergies Allergy/AdvReac Type Severity Reaction Status Date / Time doxycycline Allergy Nausea & Verified 10/31/24 09:30 Vomiting Sulfa (Sulfonamide Allergy Nausea Verified 10/31/24 09:30 Antibiotics) sulfamethoxazole Allergy Nausea Verified 10/31/24 09:30 [From Bactrim] trimethoprim [From Bactrim] Allergy Nausea Verified 10/31/24 09:30 cephalexin [From Keflex] AdvReac Nausea Verified 10/31/24 09:30 Exam Vital Signs Temp Pulse Resp BP Pulse Ox 10/31/24 09:34 98.8 F 88 16 110/77 98 Intake and Output 10/30/24 10/31/24 10/31/24 22:59 06:59 14:59 Other: Weight 72.121 kg Height 5 feet 1 inch, weight 159 pounds, BMI 30.0. This is a well-developed well-nourished white female who is alert and oriented times 3 in no acute distress. HEENT: Within normal limits. NECK: Supple without mass or thyromegaly. CHEST AND LUNGS: Clear to auscultation. HEART: Regular rate and rhythm. BREASTS: Are without mass or discharge. AXILLARY EXAM: Negative for adenopathy. BACK: Negative for CVA tenderness. ABDOMEN: Soft, nontender, without palpable masses. PELVIC EXAM: Normal external genitalia with minimal atrophy. Cervix and vagina appear normal with mild atrophy. There is no unusual discharge. There is no evidence of prolapse. The uterus is midposition, nongravid size and nontender. There are no palpable adnexal masses or tenderness. RECTAL EXAM: Rectovaginal exam is negative for mass or tenderness and is negative for occult blood. EXTREMITIES: Nontender. IMPRESSION: 1. 54-year-old menopausal female with normal gynecologic exam. 2. Suspected to spousal infidelity. 3. Recent dyspareunia secondary to vaginal dryness and small postcoital spotting x 1 with that sexual activity. 4. Patient vaginal odor and postcoital vulvar burning without significant physical findings on exam today PLAN: 1. Pap smear cotest was performed. 2. GC and Chlamydia testing was obtained from the cervix and affirm vaginitis panel was obtained from the vagina. Blood STD testing will also be done today. This will include HIV, RPR, hepatitis B surface antigen, and hepatitis C antibody. 3. Self breast awareness was discussed with the patient. We have also discussed symptoms associated with inflammatory breast cancer. 4. She was also instructed to call if she has any more vaginal bleeding. 5. She states she is not sure if she will continue to be with her boyfriend because of his behavioral changes and possible infidelity. Discussed how she will need to protect herself from infections and to protect herself if she is in a bad relationship. 6. She was advised to return in one year for her annual well woman exam and as needed.
[2024-10-31 15:40] LABS: Hepatitis B Surface Antigen Nonreactive (Nonreactive); Hepatitis C IgG Antibody Nonreactive (Nonreactive)
[2024-10-31 17:03] LABS: HIV 2 AB Non-Reactive (Non-Reactive); HIV AB P24 Non-Reactive (Non-Reactive); HIV P24 AG Non-Reactive (Non-Reactive)
[2024-11-01 12:15] LABS: Gardnerella Negative (Negative); Trichomonas Negative (Negative)
[2024-11-01 13:30] LABS: C. trachomatis,PCR Negative (Negative); N. gonorrhoeae,PCR Negative (Negative)
--- NOTE | 2024-11-02 11:43 | P.PN ---
Progress Note - Text Progress Note Date: 11/02/24 OUTPATIENT FOLLOW-UP NOTE TEST(S)/RESULTS: Test results from 10/31/2024 include negative GC, negative chlamydia negative syphilis screen, negative hepatitis B surface antigen, and hepatitis C antibody. Affirm vaginitis panel was negative for Christi, Gardnerella, and trichomonas. METHOD OF NOTIFICATION: The patient was notified by phone on 11/02/2024. PATIENT COMMENTS: DIAGNOSIS: Negative STD screening as above. Negative affirm vaginitis panel. DISCUSSION: PLAN: We still await the Pap smear cotest.
== END ==
LOC: WWCWWP 09:14
PROVIDERS: ATTEND Obstetrics & Gynecology
DX: Z01.419 Encounter for gynecological examination (general) (routine) without abnormal findings (principal); Z78.0 Asymptomatic menopausal state; N94.10 Unspecified dyspareunia; N93.0 Postcoital and contact bleeding; F17.290 Nicotine dependence, other tobacco product, uncomplicated; Z88.1 Allergy status to other antibiotic agents; Z88.2 Allergy status to sulfonamides
CPT/HCPCS: 86780; 86803; 87340; 87390; 87480; 87491; 87510; 87591; 87660